=== PATIENT | male | born 1955 | race Caucasian/White ===

== ENCOUNTER 2023-11-17 14:12 | Emergency (ER) | payer MEDICARE, OTHER, SELFPAY ==
[2023-11-17 14:27] VITALS: BP 132/73
[2023-11-17 14:53] LABS: % Basophils 0.7 % (0-2); % Eosinophils 2.2 % (0-6); % Immature Granulocytes 0.1 % (0-0.5); % Lymphocytes 20.4 % (20.5-51.1); % Monocytes 4.2 % (1.7-9.3); % Neutrophils 72.4 % (42.2-75.2); Absolute Basophils 0.1 10^3/uL (0-0.2); Absolute Eosinophils 0.2 10^3/uL (0-0.7); Absolute Lymphocytes 1.4 10^3/uL (1.2-3.4); Absolute Monocytes 0.3 10^3/uL (0.1-0.6); Absolute Neutrophils 4.8 10^3/uL (1.4-6.5); Hematocrit 40.8 % (39.0-52.0); Hemoglobin 13.9 g/dL (13.0-18.0); Mean Corp Hgb Conc. 34.1 g/dL (33.0-37.0); Mean Corpuscular Hgb 32.2 pg (27.0-31.0); Mean Corpuscular Volume 94.4 fL (80.0-94.0); Mean Platelet Volume 12.1 fL (7.4-10.4); Nucleated Red Blood Cells % 0 % (-); Platelet Count 130 10^3/uL (130-400); Red Blood Cell Count 4.32 10^6/uL (4.70-6.10); Red Cell Dist. Width 12.7 % (11.5-14.5); White Blood Cell Count 6.7 10^3/uL (4.8-10.8)
[2023-11-17 15:09] LABS: ALT (SGPT) 26 U/L (0-50); AST (SGOT) 28 U/L (17-59); Albumin 4.2 g/dl (3.5-5.0); Alkaline Phosphatase 93 U/L (38-126); Blood Urea Nitrogen 27 mg/dl (9-20); Calcium 9.7 mg/dl (8.4-10.2); Carbon Dioxide 25 mmol/L (22-30); Chloride 109 mmol/L (98-107); Glucose 130 mg/dl (70-99); Potassium 4.5 mmol/L (3.5-5.1); Sodium 143 mmol/L (135-145); Total Bilirubin 0.5 mg/dl (0.2-1.3); Total Protein 6.7 g/dl (6.3-8.2)
[2023-11-17 15:15] LABS: Troponin I 0.028 ng/ml
--- NOTE | 2023-11-17 16:19 | ED.GENMED ---
History of Present Illness
General
Chief Complaint: Chest Pain
Source: patient
Exam Limitations: none
Time Seen by Provider: 11/17/23 16:13
Nursing documentation reviewed up to this point in time: agreed with
History of Present Illness
History of Present Illness:
68 yr old male with pmh of htn , hyperlipidemia, GERD presents to the ED for evaluation of chest pain. Patient reports for the past 1 month he has noticed left-sided chest pain that has been mostly constant and dull. He does feel it radiates to
his left neck at times . he felt this was muscular. He does feel that it is sore to touch.
He has no associated shortness of breath nausea vomiting sweating. Today he was at a dropped the program and bent over to pick it up and then felt severe left-sided chest pain in this area and it was felt he was in a pass out. This
occurred at 12 pm. Currently he states that lashae is sore, same as it has been for past one month.
Patient was a former smoker for 25 years does have high blood pressure high cholesterol and smokes cigars. No prior history of DVT PE. No family history of clotting disorder.
Review of Systems
Review of Systems
Allergies reviewed?: Yes
All Other Systems: ROS reviewed and negative except as documented in HPI and ROS
Constitutional: Reports no symptoms; Denies fever, fatigue or chills
Respiratory: Reports no symptoms
Cardiac: Reports chest pain (Left-sided chest pain for the past 1 month.) and other (felt near syncope today at 12 pm with pain .); Denies palpitations
ABD/GI: Reports no symptoms
Musculoskeletal: Reports no symptoms
Skin: Reports no symptoms
Neurological: Reports no symptoms
Psychiatric: Reports no symptoms
Phy Exam
General Physical Exam
General Presentation: no apparent distress
General age: appears stated age
General Skin: warm and dry
General Habitus: normal
General Mental: alert
General Hydration: appears well hydrated
Cardiovascular Exam
Cardiovascular Exam: regular rate/rhythm, no murmur and normal peripheral pulses
Pulmonary Exam
Pulmonary Exam: lungs clear and no respiratory distress
Neurological Exam
Neurological Exam: alert and oriented x3
Musculoskeletal Exam
Musculoskeletal Exam: full ROM
Skin Exam
Skin Exam: normal color and warm/dry
Psychiatric Exam
Psychiatric Exam: normal mood/affect
Scores
Heart Score for Chest Pain Patients
STEMI patient?: Not applicable
Course
Orders/Labs/Results
Orders:
Orders
11/17/23 14:14
ECG [Electrocardiogram (*1)] Urgent
Reason for Study: Chest Pain
EKG- Treatment ONCE
11/17/23 14:39
Complete Blood Count/With Diff Urgent
Comprehensive Metabolic Panel Urgent
Troponin I Urgent
11/17/23 16:32
Chest [CR Chest - 2 Views ] Urgent
Comment:
Reason For Exam: cp
11/17/23 16:35
EKG- Treatment ONCE
11/17/23 17:40
EKG [Electrocardiogram (*1)] Urgent
Reason for Study: Chest Pain
11/17/23 17:58
DDimer [D-Dimer] Urgent
Troponin I Urgent
11/17/23 19:20
CT Chest Pe Study Urgent
Comment:
Reason For Exam: SOB
Abnormal Lab Results
11/17/23 11/17/23
14:39 17:58
RBC 4.32 L 10^6/uL
(4.70-6.10)
MCV 94.4 H fL
(80.0-94.0)
MCH 32.2 H pg
(27.0-31.0)
MPV 12.1 H fL
(7.4-10.4)
Lymphocytes % 20.4 L %
(20.5-51.1)
D-Dimer 0.98 H ug/mlFEU
(0.00-0.50)
Chloride 109 H mmol/L
(98-107)
BUN 27 H mg/dl
(9-20)
Glucose 130 H mg/dl
(70-99)
11/17/23 14:39
11/17/23 14:39
Vital Signs
Initial and Last Documented VS:
Initial Vital Signs
Temp Pulse Resp BP Pulse Ox
98.0 F 90 20 132/73 95
11/17/23 14:27 11/17/23 14:27 11/17/23 14:27 11/17/23 14:27 11/17/23 14:27
Last Documented Vital Signs
Temp Pulse Resp BP Pulse Ox
98.0 F 56 22 155/83 98
11/17/23 14:27 11/17/23 22:15 11/17/23 22:15 11/17/23 22:06 11/17/23 22:15
Research And Evaluation Analyst consulted with Physician
Research And Evaluation Analyst consulted with physician?: Yes
Name of Physician Consulted: lisa
MDM/Problems Addressed
Differential Diagnosis Includes:
Not limited to muscular pain less likely ACS, PE
MDM/Problems Addressed:
Patient is a 68-year-old male who has had persistent chest pain for the past 1 month in the left chest. He thought this was muscular and did not see his family doctor. He denies any associated shortness of breath with this. Denies any nausea
vomiting sweating. Today he bent over and felt pain in his left chest cephalic is in a pass out which the prompted him to come to the ER. Patient presents awake alert no acute distress chest is mildly sore on exam he feels mildly sore, mild
discomfort. He is in no acute distress on arrival.
Patient had 2 cardiac troponins no acute abnormality on EKG. patient has had no prior troponins here in the hospital his first troponin was 0.028 peak troponin 0.027. D-dimer was done to further investigate mildly elevated and CAT scan was done
which was negative for PE does show pulmonary nodule. Did review this with patient.
As this pain has been persistent for the past 1 month is unlikely ACS. Patient is in no acute distress here and looks well. Stable vital signs. Will DC with family doctor as well as cardiology follow-up I did review with patient following up for
CT findings.
Chronic conditions affecting care:
Hypertension hyperlipidemia
*Radiology
Radiology exam reviewed: radiology read reviewed
*Pulse Oximetry
Patient hypoxic: no
*EKG
Interpreted by ED Provider?: Yes
Comparison EKG: no comparison EKG present
Heart Rate: 81
Rate: normal
Rhythm: sinus
Ischemia: other (repeat ekg unchanged )
*Critical Care Note
Total Time (30-74mins, 75-104mins- exclusive of procedures): Not Applicable
ED Attending Note
-
Portions of this chart may have been created with voice recognition software.� Occasional wrong word or��sound alike� substitutions may have occurred due to the inherent limitations of voice recognition software.
Discharge Plan
Departure
Patient Disposition: Home (Routine Discharge)
Date of Disposition: 11/17/23
Time of Disposition: 22:50
Patient with high blood pressure during this ER visit?: Yes
Condition: Fair
Covid-19: Not Applicable
Discharge Problem:
Chest pain
Instructions: Chest Pain PCP Follow Up, BLOOD PRESSURE
Referrals:
Jessica Espinoza CRNP [Family Provider] -
Norris Clark, [Active] -
Activity Restrictions/Additional Instructions:
As discussed please call your family doctor tomorrow to make an appointment for reevaluation of symptoms. As discussed you will need additional follow-up for pulmonary nodule finding on CAT scan. In addition please call cardiology to make an
appointment. Return if any worsening of symptoms
Interventions
Interventions:
*Risk Screen - Suicide Last Done: 11/17/23 16:24
*General Assessment Last Done: 11/17/23 16:24
*Neglect/Abuse Screening Last Done: 11/17/23 16:24
ED- Fall Risk Assessment Last Done: 11/17/23 16:24
*ED COVID-19 Vaccine History Last Done: 11/17/23 16:24
ED- Cardiac Assessment Last Done: 11/17/23 16:24
Discharge Date and Time
Print Language: CAPE VERDEAN
[2023-11-17 16:21] VITALS: BP 123/73
[2023-11-17 18:21] LABS: D-Dimer 0.98 ug/mlFEU (0.00-0.50)
[2023-11-17 18:32] LABS: Troponin I 0.027 ng/ml
[2023-11-17 20:00] VITALS: BP 150/88
[2023-11-17 21:00] VITALS: BP 159/86
[2023-11-17 22:06] VITALS: BP 155/83
[2023-11-17 23:00] VITALS: BP 123/85
--- NOTE | 2023-11-30 09:42 | OID.L.PAT ---
Pulmonary Nodule Pat Letter
- -
11/30/23
NAHOMY HUGGINS
[address]
[place], [place]
Afua COREA,
A pulmonary nodule was seen on an imaging study done by [facility]. This was reviewed by the [facility] Pulmonary Nodule Advisory Board and the following recommendation was made:
Recommendation: PET/CT - now and follow up with a Senior Qc Technician
If you have any questions, please do not hesitate to contact your primary care physician. If you are in need of a Physician, you can go to [email or web address] and click on 'Find a Provider'. Type 'Family Medicine' in the search.
Oncology Nurse Navigator
[facility]
[phone]
--- NOTE | 2023-11-30 09:42 | OID.L.REC ---
Pulmonary Nodule Follow Up
- Recommendation
11/30/23
Pulmonary Nodule Review Recommendations
Your patient, NAHOMY HUGGINS, had a pulmonary nodule seen on an imaging study done on 11/17/23 in the [facility] Emergency Room.
This was reviewed by the [facility] Pulmonary Nodule Advisory Board and the following recommendation was made:
Recommendation: PET/CT - now and follow up with a Brake Lining Finisher
If you have any questions please do not hesitate to contact us.
Sincerely,
Oncology Nurse Navigator
[facility]
[phone]
== END 2023-11-17 23:20 | disposition home or self-care (01) ==
LOC: EMR 14:12
PROVIDERS: Emergency Medicine; Nurse Practitioner; EMERGENCY PHYSICIAN Emergency Medicine; FAMILY PHYSICIAN Family Medicine
DX: R07.89 Other chest pain (principal); I10 Essential (primary) hypertension; E78.00 Pure hypercholesterolemia, unspecified; K21.9 Gastro-esophageal reflux disease without esophagitis; Z87.891 Personal history of nicotine dependence
CPT/HCPCS: 99284; 71046; 71275; 80053; 84484; 85025; 85379; 93005; Q9967